=== PATIENT | male | born 1980 | race African-American/Black ===

== ENCOUNTER 2019-01-24 02:20 | Emergency (ER) | payer OTHER ==
[~2019-01-24] VITALS: Ht 182.9 cm; Wt 136.1 kg
--- NOTE | 2019-01-24 02:35 | NUR ---
PT TO ER BED 5. AAOX4. NAD. BREATHING EVEN AND UNLABORED. AMBULATORY. DENIES CP. CAME IN WITH C/O SORETHROAT, PAINFUL TO SWALLOW X 2 DAYS. DENIES FEVER. AWAITING MD FOR EVAL
[2019-01-24] MEDS ORDERED: ACETAMINOPHEN ES 500 MG TABLET ONE (02:57)
[2019-01-24] MEDS ORDERED: PENICILLIN G BENZATHINE 2.4 MMU/4 ML ML IM ONE ×2 (02:58→03:00)
[2019-01-24] MEDS ORDERED: ACETAMINOPHEN ES 500 MG TABLET PO ONE (03:00)
[2019-01-24 03:32] VITALS: BP 150/98
--- NOTE | 2019-01-24 03:35 | NUR ---
PT NOTED WITHOUT ANY REACTION FROM BICILIN SHOT. INJECTION HAS NO SWELLING. NO REDNESS AND NO PAIN.
--- NOTE | 2019-01-24 03:49 | NUR ---
Patient discharged to home in stable condition. Written and verbal after care instructions given. Patient verbalizes understanding of instruction.
== END 2019-01-24 03:40 | disposition home or self-care (01) ==
LOC: ER 02:25
DX: J03.90 Acute tonsillitis, unspecified (principal); E11.9 Type 2 diabetes mellitus without complications; E66.01 Morbid (severe) obesity due to excess calories; Z68.41 Body mass index [BMI] 40.0-44.9, adult
CPT/HCPCS: 82962; 96372; 99283; J0558